=== PATIENT | female | born 1975 | race Caucasian/White ===

== ENCOUNTER 2020-05-30 12:07 | Day surgery (SDC) | payer OTHER ==
[~2020-05-30] VITALS: Ht 175.3 cm; Wt 73.5 kg
[2020-05-30] MEDS ORDERED: LACTATED RINGERS 1,000 ML IV SCH (12:35)
[2020-05-30] MEDS ORDERED: CYCLOBENZAPRINE (12:41)
[2020-05-30] MEDS ORDERED: GABA-827 PO (12:41)
[2020-05-30 12:56] VITALS: BP 110/75
[2020-05-30] MEDS ORDERED: CHLORHEXIDINE 15 ML UDC MM ONE (13:00)
[2020-05-30 13:18] LABS: HCG UR SG 1.007 (1.003-1.030)
[2020-05-30] MEDS ORDERED: FENTANYL PF 100 MCG/2ML ONE ×3 (14:32→19:08)
[2020-05-30] MEDS ORDERED: MIDAZOLAM 1 MG/ML, 2ML ONE (14:32)
[2020-05-30] MEDS ORDERED: HYDROmorphone 2 MG/ML, 1ML IVPush PRN (17:30)
[2020-05-30] MEDS ORDERED: DIAZEPAM 5 MG/ML, 2ML IVPush PRN (17:30)
[2020-05-30] MEDS ORDERED: OXYcodone 5 MG/5 ML ORAL.SOL UDC PO PRN (17:30)
[2020-05-30] MEDS ORDERED: hydrALAzine 20 MG/ML, 1ML IV PRN (17:30)
[2020-05-30] MEDS ORDERED: ALBUTEROL SULFATE 2.5 MG/3 ML NPPB PRN (17:30)
[2020-05-30] MEDS ORDERED: LABETALOL 5MG/ML, 20ML IV PRN (17:30)
[2020-05-30] MEDS ORDERED: KETOROLAC 30 MG/1 ML IV PRN (17:30)
[2020-05-30] MEDS ORDERED: MEPERIDINE/PF 25MG/0.5ML IVPush PRN (17:30)
[2020-05-30] MEDS ORDERED: ACETAMINOPHEN 325 MG TABLET PO PRN (17:30)
[2020-05-30] MEDS ORDERED: PROMETHAZINE 25 MG/ML, 1ML IV PRN (17:30)
[2020-05-30] MEDS ORDERED: NEOSTIGMINE 1 MG/ML, 10ML ONE (18:42)
[2020-05-30] MEDS ORDERED: SUCCINYLCHOLINE 20 MG/ML, 10ML ONE (18:42)
[2020-05-30] MEDS ORDERED: ROCURONIUM 10MG/ML,5ML ONE (18:42)
[2020-05-30] MEDS ORDERED: GLYCOPYRROLATE 0.2MG/1ML, 5ML ONE (18:42)
[2020-05-30] MEDS ORDERED: CEFAZOLIN 1,000 MG ONE (18:42)
[2020-05-30] MEDS ORDERED: DEXAMETHASONE 4 MG/ML, 1ML ONE (18:42)
[2020-05-30] MEDS ORDERED: ONDANSETRON 2MG/ML, 2ML ONE (18:42)
[2020-05-30] MEDS ORDERED: PROPOFOL 10 MG/ML, 20ML ONE (18:42)
[2020-05-30] MEDS ORDERED: OXYcodone 5 MG/5 ML ORAL.SOL UDC ONE (19:08)
[2020-05-30] MEDS: FENTANYL PF 100 MCG/2ML IV PRN ×2 (19:11→19:17)
[2020-05-30 21:03] VITALS: BP 101/59
[2020-05-30] MEDS ORDERED: ASPI-496 PO (21:17)
== END 2020-05-30 22:03 | disposition home or self-care (01) ==
LOC: OUT 12:07 → 4NE 20:00 → OUT 22:03
PROVIDERS: ATTEND Orthopaedic Surgery Foot and Ankle Surgery
DX: M25.371 Other instability, right ankle (principal); Z20.828 Contact with and (suspected) exposure to other viral communicable diseases; M21.541 Acquired clubfoot, right foot; M13.871 Other specified arthritis, right ankle and foot; M20.41 Other hammer toe(s) (acquired), right foot; M93.279 Osteochondritis dissecans, unspecified ankle and joints of foot; M79.7 Fibromyalgia; M81.0 Age-related osteoporosis without current pathological fracture; F17.210 Nicotine dependence, cigarettes, uncomplicated; F15.90 Other stimulant use, unspecified, uncomplicated; Z79.899 Other long term (current) drug therapy; Z88.0 Allergy status to penicillin; Z91.030 Bee allergy status; Z79.82 Long term (current) use of aspirin
CPT/HCPCS: 27695; 28200; 28230; 28300; 28735; 28760; 29892; 29898; 36415; 64445; 73620; 73650; 76000; 81025; 87635; C1713; J0690; J1100; J2250; J2405; J2704; J3010; J7120; G0378; J2710; J0330

== ENCOUNTER 2020-09-15 12:31 | Emergency (ER) | payer OTHER ==
[~2020-09-15] VITALS: Ht 175.3 cm; Wt 78.1 kg
[~2020-09-15 12:31] MED LIST: ASPI-496 PO; CYCLOBENZAPRINE; GABA-827 PO
[2020-09-15 12:54] VITALS: BP 123/70
== END 2020-09-15 13:34 | disposition home or self-care (01) ==
LOC: ED 13:04
DX: H60.502 Unspecified acute noninfective otitis externa, left ear (principal)
CPT/HCPCS: 99283

== ENCOUNTER 2020-11-09 11:57 | Emergency (ER) | payer OTHER ==
[~2020-11-09] VITALS: Ht 175.3 cm; Wt 81.3 kg
[2020-11-09 12:11] VITALS: BP 130/75
== END 2020-11-09 12:41 | disposition home or self-care (01) ==
LOC: ED 12:17
DX: L03.211 Cellulitis of face (principal); M79.89 Other specified soft tissue disorders
CPT/HCPCS: 99283

== ENCOUNTER → 2021-04-30 | Outpatient (CLI) | payer OTHER ==
[~2021-04-30] MED LIST changes: +FLUT9.9S NS; +GABA100C PO; +IBUP200C8 PO; +MELO15TA24 PO; +MULT-658 PO; +Magnesium PO; +Vitamin c PO; +collagen PO; +vitamin d PO
[2021-04-30 11:49] LABS: BASOPHILS % (AUTO) 1 % (0-1); EOSINOPHILS % (AUTO) 3 % (1-7); LYMPHOCYTES % (AUTO) 24 % (22-44); MEAN CORPUSCULAR HEMOGLOBIN 30.9 pg (27.0-34.8); MEAN CORPUSCULAR HGB CONC 33.6 g/dL (32.4-35.8); MEAN PLATELET VOLUME 7.6 fL (7.4-10.4); MONOCYTES % (AUTO) 9 % (2-9); NEUTROPHILS % (AUTO) 64 % (42-75); PLATELET COUNT 407 x10^3/uL (130-400); RED BLOOD COUNT 4.05 x10^6/uL (3.82-5.3); RED CELL DISTRIBUTION WIDTH 13.5 % (9.6-15.2)
[2021-04-30 11:59] LABS: ALANINE AMINOTRANSFERASE 21 U/L (12-78); ALBUMIN 3.7 g/dL (3.4-5.0); ANION GAP 5 mmol/L (5-15); CALCIUM 8.5 mg/dL (8.5-10.1); CHLORIDE 108 mmol/L (98-107)
[2021-04-30 12:01] LABS: ALKALINE PHOSPHATASE 67 U/L (45-117); BILIRUBIN,TOTAL 0.3 mg/dL (0.2-1.0); TOTAL PROTEIN 7.1 g/dL (6.4-8.2)
== END | disposition home or self-care (01) ==
LOC: STAR 10:38
PROVIDERS: ATTEND Obstetrics & Gynecology Female Pelvic Medicine and Reconstructive Surgery
DX: Z01.812 Encounter for preprocedural laboratory examination (principal); Z20.822 Contact with and (suspected) exposure to COVID-19; Z01.818 Encounter for other preprocedural examination; N93.9 Abnormal uterine and vaginal bleeding, unspecified; N94.6 Dysmenorrhea, unspecified; D25.9 Leiomyoma of uterus, unspecified; N39.3 Stress incontinence (female) (male); R10.2 Pelvic and perineal pain
CPT/HCPCS: 36415; 80053; 85025; 93005; U0003; U0005

== ENCOUNTER 2021-06-23 06:34 | Emergency (ER) | payer OTHER ==
[~2021-06-23] VITALS: Ht 175.3 cm; Wt 83.4 kg
--- NOTE | 2021-06-23 07:52 | NUR ---
patient to room from lobby
--- NOTE | 2021-06-23 08:15 | NUR ---
PT REPORTS BILATERAL THIGH PAIN X2 NIGHTS. INCREASED AT NIGHT "UP TO A 10" FOR PAIN, DECREASED DURING THE DAY. PT DENIES CURRENT IV/IM DRUG USE. PT REPORTS FIBROID SURGERY REMOVAL SCHEDULED FOR 07/21/2021, WHICH IS IN PT'S ABDOMEN AND PT REPORTS IS "25 POUNDS RIGHT NOW". PT ALSO C/O LEFT LOWER BACK PAIN. PT REPORTS THAT IS CURRENTLY IN THE [facility] WITH [facility], THOUGH SHE IS NOT EXPERIENCING ANY COVID SYMPTOMS AT THIS TIME. VSS. SIDE RAILS UP, CALL LIGHT IN REACH.
[2021-06-23 09:15] VITALS: BP 112/65
[2021-06-23 09:15] LABS: BASOPHILS % (AUTO) 1 % (0-1); EOSINOPHILS % (AUTO) 1 % (1-7); LYMPHOCYTES % (AUTO) 17 % (22-44); MEAN CORPUSCULAR HEMOGLOBIN 30.7 pg (27.0-34.8); MEAN CORPUSCULAR HGB CONC 33.6 g/dL (32.4-35.8); MEAN PLATELET VOLUME 7.6 fL (7.4-10.4); MONOCYTES % (AUTO) 13 % (2-9); NEUTROPHILS % (AUTO) 70 % (42-75); PLATELET COUNT 302 x10^3/uL (130-400); RED BLOOD COUNT 4.28 x10^6/uL (3.82-5.3)
[2021-06-23 09:17] LABS: HCT (SEDRATE) 38.5 % (34.6-47.8)
--- NOTE | 2021-06-23 09:20 | NUR ---
pt laying back in bed, respirations even and unlabored on ra. NAD noted at this time.
[2021-06-23 09:23] LABS: ALBUMIN 3.6 g/dL (3.4-5.0); ANION GAP 5 mmol/L (5-15); C-REACTIVE PROTEIN, QUANT 0.52 mg/dL (0.02-0.49); CALCIUM 8.4 mg/dL (8.5-10.1); CHLORIDE 105 mmol/L (98-107); CREATININE 0.65 mg/dL (0.55-1.02)
--- NOTE | 2021-06-23 10:30 | NUR ---
PT NOT IN ROOM FOR RECHECK, POSSIBLY IN BATHROOM. PA DENIES SEEING PT EITHER.
== END 2021-06-23 11:55 | disposition left against medical advice (07) ==
LOC: ED 07:44
DX: M79.651 Pain in right thigh (principal); M79.652 Pain in left thigh; G62.9 Polyneuropathy, unspecified
CPT/HCPCS: 36415; 72110; 80048; 82040; 85025; 85651; 86140; 99284